=== PATIENT | female | born 1950 | race Caucasian/White ===

== ENCOUNTER 2020-04-22 07:35 | Observation (INO) | payer MEDICARE, OTHER ==
[2020-04-16 08:58] LABS: ABSOLUTE EOSINOPHILS 0.3 thou/uL (0.0-0.7); ABSOLUTE LYMPHOCYTES 2.3 thou/uL (0.8-5.3); ABSOLUTE MONOCYTES 0.7 thou/uL (0.0-1.2); BASOPHILS 0.8 %; EOSINOPHILS 4.4 %; HEMOGLOBIN 14.3 gm/dL (12.0-15.0); LYMPHOCYTES 36.3 %; MCHC 34.2 g/dL (28.0-37.0); MONOCYTES 10.8 %; NUCLEATED RBCS 0 /100WBC; PLATELET COUNT* 200 thou/uL (150-400); POLYS 47.7 %; RBC 4.94 mil/uL (4.20-5.00); RDW-CV 14.1 % (10.5-14.5); WBC 6.3 thou/uL (4.0-11.0)
[2020-04-16 09:06] LABS: APTT 24.1 Seconds (25.0-31.3); PROTIME 9.8 Seconds (9.20-11.50)
[2020-04-16 09:15] LABS: ALBUMIN 3.9 g/dL (3.4-5.0); CALCIUM 8.3 mg/dL (8.5-10.1); CREATININE 0.9 mg/dL (0.6-1.3); TOTAL BILIRUBIN 0.3 mg/dL (<0.1-1.0); TOTAL PROTEIN 6.9 g/dL (6.4-8.2)
[2020-04-16 11:27] LABS: ESR (SEDRATE) 2 mm/hr (0-30)
--- NOTE | 2020-04-16 16:26 | EKG ---
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
[~2020-04-22] VITALS: Ht 162.6 cm; Wt 68.0 kg
--- NOTE | ~2020-04-22 | OP ---
[facility] [address] [place] [address] OPERATIVE REPORT Name: JEWELS SANTOS Room: [address] Darren#: [id number] Admission: 04/22/20 Attend Phys: River Orozco DO Discharge: Date of : 54 Report #: [id number] THIS REPORT FOR: //name// cc: Rosa M White MD, Jennifer MD ~ THIS REPORT FOR: //name// CC: Rosa M Orozco DICTATED BY: Alpesh Leon DO DATE OF SERVICE: 04/22/2020 PREOPERATIVE DIAGNOSIS: Advanced degenerative joint disease, left knee. POSTOPERATIVE DIAGNOSIS: Advanced degenerative joint disease, left knee. PROCEDURE PERFORMED: Left total knee arthroplasty utilizing Biomet total knee system with the following components: 1. A size 65 mm cruciate retaining femoral component. 2. A size 71 mm tibial baseplate. 3. A 28 mm asymmetric patella. 4. A 12 mm anterior stabilized polyethylene. SURGEON: River Orozco DO BODY COMPONENT ENGINEER: Katie Miller PA-C SECOND WATER GAS OPERATOR: Alpesh Leon DO ANESTHESIA: General with peripheral nerve block. ESTIMATED BLOOD LOSS: 150 mL. ANTIBIOTICS: 2 grams Ancef IV preoperatively and 1 gram vancomycin powder intraoperatively. COMPLICATIONS: None. TOURNIQUET: None. SPECIMENS: None. CONDITION: The patient is stable to PACU. [facility] [address] [place] [address] OPERATIVE REPORT Name: JEWELS SANTOS Room: [address] Darren#: [id number] Admission: 04/22/20 Attend Phys: River Orozco DO Discharge: Date of : 54 Report #: [id number] INDICATION FOR PROCEDURE: The patient is a pleasant 69-year-old female who has been seen and examined in [facility] for her left knee pain. Radiographs were obtained which demonstrated advanced degenerative joint disease with joint space narrowing, osteophytic lipping and subchondral sclerosis. Conservative treatments were trialled which consisted of activity modification, anti-inflammatories and intra-articular steroid injections. Despite these treatments, she continued to have left knee pain. Left total knee arthroplasty was discussed with the patient. The risks, benefits, alternatives and complications were reviewed and the patient wished to proceed. INTRAOPERATIVE FINDINGS: Upon visual inspection of the knee intraoperatively, there were noted to be findings consistent with tricompartmental degenerative joint disease. There was loss of articular cartilage in all 3 compartments. There were eburnated bone edges. There were periarticular osteophytes. No other abnormalities were noted. DESCRIPTION OF PROCEDURE: The patient was seen and examined in the preoperative holding area. The correct operative extremity was then marked. Written consent was obtained for the procedure. The patient was transferred to the operating room and placed supine on the operating table. She was given the benefit of general anesthesia. A well-padded tourniquet was placed in the left thigh, but was not inflated during the procedure. Left lower extremity was then prepped and draped in the usual sterile fashion. Timeout was performed to verify the correct patient, procedure and operative extremity and all were in agreement. Procedure then began with a standard midline incision. Sharp dissection was carried down to the level of the joint capsule. Medial parapatellar arthrotomy was then performed. Medial periosteal sleeve was developed and the anterior horn of the medial and lateral menisci was excised. The patella was then everted and the patellar fat pad was excised. The femoral canal was drilled and the intramedullary femoral tracy was inserted and pinned into position at 5 degrees of valgus cut angle. A 10 mm cut was then made off the distal femur. Attention was then turned to the tibia. An extramedullary tibial guide was placed. This was pinned into position measuring 2 mm off of the lateral side. This was then raised 2 mm to measure an 8 mm cut. This was performed in a standard fashion. The knee was brought into extension and a 10 spacer block was inserted. The knee was noted to have full range of motion and was well balanced. Attention was then turned back to the femur and the femur was sized utilizing the AP sizer. This was drilled in 3 degrees of external rotation. This was sized to a size 65 mm femur. The 4-in-1 cutting block was then inserted and the anterior, posterior and chamfer cuts were performed in standard fashion. The cutting block was removed and all excess bone was removed. The remainder of the menisci were then excised at that time. The tibia was trialed and noted to be a size 71 mm tibia. A trial baseplate was pinned into position. The trial femur was inserted and the 12 mm trial poly was inserted. Attention was then turned to the patella, which was reamed in the standard fashion. This was measured to be a size 28 mm patella. The peg holes were then drilled and [address] [address] OPERATIVE REPORT Name: JEWELS SANTOS Room: [facility]#: [id number] Admission: 04/22/20 Attend Phys: River Orozco DO Discharge: Date of : 54 Report #: [id number] the trial button was inserted. The knee was taken through range of motion with all the trial components. There was noted to be excellent patellar tracking. The knee had full range of motion and was well balanced. The knee had excellent stability. The femur was drilled and the tibia was reamed and broached in the standard fashion. All trial components were removed. The knee was thoroughly irrigated with pulsatile lavage. The posterior capsule was injected with 60 mL of the orthopedic cocktail. Cement was mixed on the back table. Final components were cemented into position. All excess cement was removed. The trial size 12 mm poly was inserted. Once again, the knee was confirmed to have full range of motion and excellent stability. The knee was irrigated once more and the final 12 mm poly was inserted. The knee was then taken to 90 degrees of flexion and the capsule was closed with #1 Vicryl in an interrupted [id number]-[id number]-mxzee fashion followed by a running Quill suture. This layer was irrigated. A 60 mL of orthopedic cocktail was also injected into these tissues as well as intraarticularly. Subcutaneous layer was closed with 2-0 Monocryl in a simple interrupted and inverted fashion followed by a running 3-0 Stratafix and Dermabond skin glue. Sterile dressing was applied. The patient was then awakened from anesthesia and transferred to PACU in stable condition. The patient tolerated the procedure well. There were no complications. Dr. Orozco was present for the entirety of the procedure. By: [id number] [id number] Judy Orozco DO /nt
[~2020-04-22 07:35] MED LIST: DETROL LA4 MG PO; FAMCYCLOVIR 50500 M1 PO; LEVOXYL125 MCG PO
[2020-04-22 14:41] VITALS: BP 124/77
--- NOTE | 2020-04-22 15:25 | NUR ---
ORDER RECEIVED FOR "OT EVAL AND TREAT". PLAN TO DEFER TO PHYSICAL THERAPY AT THIS TIME.
[2020-04-22 15:47] VITALS: BP 95/36
--- NOTE | 2020-04-22 17:21 | NUR ---
PATIENT HAS BEEN RESTING SINCE SURGERY. SHE HAD A NERVE BLOCK AND HAS A CONTINUOUS INFUSION. SHE HAS HER TEDS, SCD'S AND POLAR CARE IN PLACE ORDERED. WE DO NOT HAVE A CPM AVAILABLE AT THIS TIME BUT THE DR IS AWARE. HER IV TO THE LEFT FOREARM IS SALINE LOCKED. SHE IS DRINKING ALOT OF WATER AND IS VOIDING WELL VIA BEDPAN. PT COULD NOT GET HER UP BECAUSE OF THE NERVE BLOCK. SHE DENIES ANY PAIN OR DISCOMFORT AT THIS TIME.
[2020-04-22 17:53] VITALS: BP 95/36
[2020-04-22] MEDS ORDERED: ELIQUIS2.5 MG PO (17:55)
[2020-04-22] MEDS ORDERED: TRAMADOL 50 MG50 MG PO (17:56)
[2020-04-22] MEDS ORDERED: OXYCODONE HCL 55 MG PO (17:56)
[2020-04-23] VITALS: BP 99/63
[2020-04-23 04:00] VITALS: BP 97/57
[2020-04-23 07:50] VITALS: BP 101/54
--- NOTE | 2020-04-23 08:09 | NUR ---
PATIENT HAS SLEPT WELL THROUGHOUT THE NIGHT. VSS ON RA. NO C/O PAIN. MEDICATIONS GIVEN ORDERED AND CHARTED. DRESSING TO LEFT HIP IS C/D/I, ON Q PUMP IN PLACE, SCD'S ON AND HEATHER HOSE ON. ICE PACKS IN PLACE. PATIENT UP WITH ASSIST X 1 WITH GAITBELT AND WALKER. IV IN LEFT FOREARM-SL. PATIENT INSTRUCTED TO USE CALL LIGHT WHEN NEEDING ASSISTANCE. HOURLY ROUNDS MADE. WILL CONTINUE WITH PLAN OF CARE AND NURSING TO MONITOR.
[2020-04-23 09:00] LABS: HEMATOCRIT 36.5 % (37.0-47.0); HEMOGLOBIN 12.4 gm/dL (12.0-15.0)
[2020-04-23 10:08] LABS: HBsAG-EMPLOYEE EXPOSURE Negative (Negative)
[2020-04-23 14:09] VITALS: BP 95/36
--- NOTE | 2020-04-23 14:11 | NUR ---
Pt to dc home with today and OP therapy services to follow with pt preference of [facility] ph [phone]. SW called and faxed referral and order to fax [phone]. No other dc needs expressed.
--- NOTE | 2020-04-23 18:04 | NUR ---
ASSUMED CARE OF PATIENT AT APPROX 0730. ALERT AND ORIENTED X4. ASSESSMENT COMPLETED AND CHARTED. VSS ON ROOM AIR. PAIN MANAGED WITH TYLENOL, TORADOL, AND OXY. ONQ PUMP IN PLACE AND EDUCATION GIVEN ON HOW TO REMOVE AT HOME. PATIENT UP WITH WALKER AND GAIT BELT, WALKING TO THE BATHROOM. PATIENT DISCHARGED AT 1340 WITH ALL PERSONAL BELONGINGS, PRESCRIPTIONS AND DISCHARGE INFORMATION.
== END 2020-04-23 13:40 | disposition home or self-care (01) ==
LOC: M.TBA 07:35 → M.3W 07:35 → EDSTATUS 09:27 → M.SUR 09:27 → M.PRE 09:37 → M.3W 13:32
PROVIDERS: Orthopaedic Surgery; Specialist; ADMIT Internal Medicine
DX: Z03.818 Encounter for observation for suspected exposure to other biological agents ruled out (principal); M17.12 Unilateral primary osteoarthritis, left knee; K21.9 Gastro-esophageal reflux disease without esophagitis; E03.9 Hypothyroidism, unspecified

== ENCOUNTER → 2020-07-08 | Outpatient (CLI) | payer MEDICARE, OTHER ==
[~2020-07-08] MED LIST changes: +ELIQUIS2.5 MG PO; +OXYCODONE HCL 55 MG PO; +TRAMADOL 50 MG50 MG PO
== END ==
LOC: M.LAB 12:12
PROVIDERS: ATTEND Orthopaedic Surgery
DX: Z01.818 Encounter for other preprocedural examination (principal); Z11.59 Encounter for screening for other viral diseases; Z96.652 Presence of left artificial knee joint

== ENCOUNTER 2021-06-13 06:07 | Observation (INO) | payer MEDICARE, OTHER ==
[~2021-06-13] VITALS: Ht 162.6 cm; Wt 75.5 kg
[2021-06-13 07:20] LABS: HEMATOCRIT 40.5 % (37.0-47.0); HEMOGLOBIN 13.9 gm/dL (12.0-15.0); MCH 28.6 pg (26.0-34.0); MCHC 34.4 g/dL (28.0-37.0); MCV 83.2 fL (80.0-100.0); MPV 6.5 fl. (7.2-11.1); RBC 4.87 mil/uL (4.20-5.00); RDW-CV 14.5 % (10.5-14.5); WBC 5.8 thou/uL (4.0-11.0)
[2021-06-13 07:23] LABS: CALCIUM 8.6 mg/dL (8.5-10.1); CREATININE 0.8 mg/dL (0.6-1.3)
--- NOTE | 2021-06-13 09:46 | EKG ---
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 : 1950 Requested By: Gigi White Order Number: [id number] Reading MD: Deondre Hahn Measurements Intervals [place] Rate: 73 P: 44 LA: 143 QRS: 0 QRSD: 99 T: -23 QT: 422 QTc: 465 Interpretive Statements Sinus rhythm Probable left atrial enlargement Borderline T abnormalities, diffuse leads Compared to ECG 04/16/2020 08:43:32 Prolonged QT interval no longer present T-wave abnormality still present Electronically Signed On 06-13-2021 9:46:48 CDT by Deondre Hahn [email or web address] <ELECTRONICALLY SIGNED> By: Deondre Hahn MD, FAC 06/13/21 0946 Deondre Hahn MD, FAC /EPI
[2021-06-14] VITALS: BP 103/54
[2021-06-14 11:01] VITALS: BP 103/54
--- NOTE | 2021-06-14 12:39 | NUR ---
PT WAS D/C HOME AT APPROX 1200. VERBALIZED UNDERSTANDING OF D/C INSTRUCTIONS AND HAD NO QUESTIONS.
--- NOTE | 2021-06-14 17:05 | OP ---
[facility] [address] [place] [address] OPERATIVE REPORT Name: JEWELS SANTOS Room: [address] Vicky Banks#: [id number] Admission: 06/13/21 Attend Phys: Gigi White Discharge: 06/14/21 Date of : 54 Report #: [id number] THIS REPORT FOR: cc: Rosa M White MD, Jennifer MD Patterson, Jonathan D. MD ~ DATE OF SURGERY: 06/13/2021 PREOPERATIVE DIAGNOSIS: Recurrent gastroesophageal reflux disease after LINX procedure. POSTOPERATIVE DIAGNOSIS: Recurrent gastroesophageal reflux disease after LINX procedure. OPERATION: Laparoscopic repair of hiatal hernia without mesh implantation without fundoplication. SURGEON: Gigi White MD. ANESTHESIA: General. ESTIMATED BLOOD LOSS: 20 mL. SPECIMENS: None. DESCRIPTION OF PROCEDURE: After informed consent was obtained, the patient was brought to the operating room and placed supine. SCDs were placed and working, preoperative antibiotics were administered, general anesthesia was induced. The abdomen was prepped and draped in the usual sterile fashion. A 1 mm incision was made in the left upper quadrant. A Veress needle was inserted. Pneumoperitoneum was established. A left periumbilical 10 mm trocar was placed. This was done under direct vision. Three laparoscopic ports were placed. The Quiana retractor was placed in the epigastrium and the liver was retracted anteriorly and superiorly. This allowed visualization of the hiatus. Dissection was then undertaken by examining the crura. I was able to dissect away the hernia sac. There was a small hiatal hernia, which was recurrent. The LINX had gone up into the hernia sac, which was the expected finding given that her symptoms have recurred. I worked to fully dissect the hernia sac down. The LINX was fully identified and placed back into its intra-abdominal position. This was done with a combination of blunt dissection and a LigaSure to get small bleeding areas. Once this had been done, I placed a 2-0 Ethibond suture in the posterior crura to close the defect. Two of these sutures were placed. This closed the crural defect nicely. The LINX was back into its good intra-abdominal position. The liver was then placed back into its normal position. The ports were removed under direct vision. Skin was closed with 4-0 [place] [address] OPERATIVE REPORT Name: DANIELLEJEWELS WOODS Room: [address] Vicky Banks#: [id number] Admission: 06/13/21 Attend Phys: Gigi White Discharge: 06/14/21 Date of : 54 Report #: [id number] Monocryl. The fascia at the 10 mm port was closed with a qjvowu-sx-klyuk 0 Vicryl. Incisions were dressed with Steri-Strips. COMPLICATIONS: None. DISPOSITION: The patient was taken to recovery in satisfactory condition. <ELECTRONICALLY SIGNED> By: Gigi White MD 06/14/21 1705 1616 1728Gigi White MD /nt
== END 2021-06-14 12:10 | disposition home or self-care (01) ==
LOC: M.TBA 06:07 → M.PRE 09:53 → M.2W 17:20
PROVIDERS: ADMIT Surgery; ATTEND Surgery
DX: K44.9 Diaphragmatic hernia without obstruction or gangrene (principal); K21.9 Gastro-esophageal reflux disease without esophagitis; E03.9 Hypothyroidism, unspecified; Z20.822 Contact with and (suspected) exposure to COVID-19; Z90.89 Acquired absence of other organs; Z79.899 Other long term (current) drug therapy